=== PATIENT | male | born 1950 | race Caucasian/White ===

== ENCOUNTER 2020-01-04 09:46 | Outpatient (CLI) | payer MEDICARE, SELFPAY ==
[2020-01-04 09:58] LABS: Basophils Absolute Auto 0.05 K/mm3 (0.00-0.10); Basophils Percent Auto 0.5 % (0.0-1.0); Eosinophils Absolute Auto 0.25 K/mm3 (0.02-0.50); Eosinophils Percent Auto 2.4 % (1.0-6.0); Hematocrit 41.5 % (37.0-46.0); Immature Granulocyte Absolute 0.05 K/mm3 (0.00-0.00); Immature Granulocyte Percent A 0.5 % (0.0-0.0); Lymphocytes Absolute Auto 3.11 K/mm3 (1.10-4.50); Lymphocytes Percent Auto 30.1 % (18.0-42.0); Mean Corpuscular HGB Conc 33.7 g/dL (32.0-36.0); Mean Corpuscular Hemoglobin 31.5 pg (27.0-31.0); Mean Corpuscular Volume 93.5 fL (78.0-102.0); Mean Platelet Volume 10.4 fl (8.7-11.0); Monocytes Absolute Auto 1.04 K/mm3 (0.10-0.90); Monocytes Percent Auto 10.1 % (2.0-11.0); Neutrophils Absolute Auto 5.8 K/mm3 (1.7-7.2); Neutrophils Percent Auto 56.4 % (50.0-70.0); Platelet Count Result 201 K/mm3 (150-420); Red Blood Count 4.44 M/mm3 (4.70-6.10); Red Cell Distribution Width 12.2 % (11.6-14.4); White Blood Count 10.3 K/mm3 (4.8-10.8)
[2020-01-04 10:08] LABS: Hemoglobin A1C 5.7 % (<5.7)
[2020-01-04 11:30] LABS: Alanine Aminotransferase 13 U/L (16-63); Albumin Level 3.4 g/dL (3.4-5.0); Alkaline Phosphatase 122 U/L (46-116); Anion Gap 10.9 mmol/L (7-16); Aspartate Amino Transferase 15 U/L (15-37); Bilirubin,Total 0.2 mg/dL (0.00-1.00); Blood Urea Nitrogen 17 mg/dL (7-18); Calcium 8.6 mg/dL (8.5-10.1); Carbon Dioxide 30 mmol/L (21-32); Chloride 104 mmol/L (98-108); Cholesterol 119 mg/dL (0-200); Estimated Glomerular Filt Rate > 60; Glucose 97 mg/dL (70-99); HDL Direct 25 mg/dL (40-60); LDL Cholesterol Calculated 67 mg/dL (<130); Osmolality Calculated 291 mOsm/kg (285-295); Potassium 4.9 mmol/L (3.5-5.1); Sodium 140 mmol/L (136-145); Total Protein 6.6 g/dL (6.4-8.2); Triglycerides 136 mg/dL (0-150)
[2020-01-04 11:31] LABS: Thyroid Stimulating Hormone Reflex 2.75 u/IU/mL (0.36-3.74)
== END 2020-01-04 09:47 | disposition home or self-care (01) ==
LOC: CHSLAB 09:49
PROVIDERS: PCP Family Medicine; Visit Provider Family Medicine
DX: E78.5 Hyperlipidemia, unspecified (principal); I10 Essential (primary) hypertension; I25.10 Atherosclerotic heart disease of native coronary artery without angina pectoris; R73.02 Impaired glucose tolerance (oral)
CPT/HCPCS: 36415; 80053; 80061; 83036; 84443; 85025

== ENCOUNTER 2020-01-29 13:51 | Outpatient (CLI) | payer MEDICARE, MEDICAID, SELFPAY ==
--- NOTE | ~2020-01-29 | CT_ITS ---
EXAMINATION: CTA abd aorta runoff DATE: 01/29/2020 15:27 INDICATION: Peripheral vascular disease TECHNIQUE: Computed tomographic angiography (CTA) of the abdomen, pelvis, and both lower extremities was performed with 150 mL Omnipaque-350 intravenous contrast. The dose-length product (DLP) was 727.6 3 mGy-cm. Maximum intensity projection 3D-reconstructions of the arteries were created by the technol gerry on a separate workstation. Automated exposure control and iterative reconstruction technique we re employed. COMPARISON: None. FINDINGS: ABDOMINAL AORTA AND ITS BRANCHES: There is calcified atherosclerosis of the abdominal aorta without aneurysm or dissection. The celiac axis and superior mesenteric artery are normal in appearance. The inferior mesenteric artery is dimin utive. Single renal arteries are present bilaterally. PELVIC VASCULATURE: An endovascular stent is present in the right common iliac artery. There is calcified atherosclerosis of the left common iliac artery with mild stenosis. There is calcified atherosclerosis of the bilate ral external iliac arteries with mild stenosis. There is calcified atherosclerosis with severe stenos is in the left internal iliac artery and moderate stenosis of the right common iliac artery. RIGHT LOWER EXTREMITY VASCULATURE: There are changes of femoral popliteal bypass. There is severe stenosis of the distal femoral artery near the origin of the bypass. The superficial artery is occluded just beyond its origin. The bypass graft is patent. The popliteal artery demonstrates moderate to severe stenosis. There is severe steno sis at the origin of the peroneal artery which is diminutive throughout its course. There is atherosc lerosis with mild stenosis at the origins of the anterior and posterior tibial arteries which are oth erwise normal throughout their course. LEFT LOWER EXTREMITY VASCULATURE: There is calcified atherosclerosis and severe stenosis at the origin of the superficial femoral arter y. The superficial femoral artery is occluded over an approximately 10 cm span is proximal half with distal reconstitution approximately 20 cm above the knee. The distal superficial femoral artery demon strates calcified atherosclerosis with focal segments of severe stenosis. There is calcified atherosc lerosis of the popliteal artery without significant stenosis. The peroneal and the anterior and poste rior tibial arteries are normal in appearance and patent at the ankle. The peroneal artery is diminut samuel just above the ankle. ADDITIONAL FINDINGS: Minimal dependent atelectasis is present in the lung bases. The heart size is normal. The liver, sple en, pancreas, gallbladder, and adrenal glands are normal. There is a 1.4 cm hyperdense lesion of the left kidney upper pole. Smaller lesions of the kidneys likely represent cysts. No pathologically enla rged abdominal or pelvic lymph nodes are identified. There is no free intraperitoneal gas or evidence of bowel obstruction. There are healed fractures of the pelvis and left-sided ribs. There is an age- indeterminate T12 compression fracture. IMPRESSION: 1. Arterial vascular disease as detailed above. 2. Hyperdense lesion of the right kidney upper pole which could reflect a hemorrhagic or proteinaceou s cyst or solid neoplasm. Follow-up by CT or MRI without and with contrast is recommended. Reviewed, dictated and finalized at location B. IMPRESSION: 1. Arterial vascular disease as detailed above. 2. Hyperdense lesion of the right kidney upper pole which could reflect a hemor rhagic or proteinaceous cyst or solid neoplasm. Follow-up by CT or MRI without and with contrast is recommended.
--- NOTE | ~2020-01-29 | US_ITS ---
US arterial ankle brachial ind, US arterial duplex LE RT INDICATION: Right great toe amputation. High cholesterol. Cardiac history. Right lower extremity linda t. TECHNIQUE: Segmental pressures and plethysmographic and Doppler waveforms of the brachial and lower e xtremity arteries were obtained. COMPARISON: None. FINDINGS: Right and left brachial artery pressures of 138 mm Hg and 138 mm Hg, respectively, are concordant (no rmal difference <= 30 mmHg). The right ankle-brachial index (DONALD) is 0.43 (normal >= 0.9-1.0). The right great toe pressure could not be obtained due to amputation. The left DONALD is 0.36. The left TBI is 0.52. There is normal arterial flow through the right lower extremity graft and arteries without evidence f or occlusion. IMPRESSION: 1. Diminished bilateral ankle-brachial indices consistent with moderate-severe peripheral arterial di sease. Reviewed, dictated and finalized at location A. IMPRESSION: 1. Diminished bilateral ankle-brachial indices consistent with moderate-severe peripheral arterial disease.
== END 2020-01-29 13:52 | disposition home or self-care (01) ==
PROVIDERS: PCP Family Medicine
DX: I73.9 Peripheral vascular disease, unspecified (principal); N28.9 Disorder of kidney and ureter, unspecified
CPT/HCPCS: 75635; 93922; 93926; Q9967

== ENCOUNTER 2020-02-11 21:30 | Emergency (ER) | payer MEDICARE, MEDICAID, SELFPAY ==
--- NOTE | ~2020-02-11 | XR_ITS ---
EXAMINATION: XR chest 1V portable DATE: 02/11/2020 22:08 INDICATION: Hemoptysis. TECHNIQUE: A single frontal view of the chest was obtained on 2 radiographs. COMPARISON: Chest 2 views 02/18/2016, chest CT 02/11/2020 FINDINGS: The lungs are hyperexpanded with lucencies, consistent with emphysema. There is mild scarri ng at the lung apices. There is mild atelectasis in lingula. No pleural effusion or pneumothorax. The heart size is normal. IMPRESSION: 1. Emphysema. 2. Mild scarring at the lung apices and mild atelectasis in lingula. Reviewed, dictated and finalized at location B.
--- NOTE | ~2020-02-11 | CT_ITS ---
EXAMINATION: CTA chest PE protocol DATE: 02/11/2020 22:51 INDICATION: Hemoptysis. TECHNIQUE: Computed tomography angiography (CTA) of the chest was performed with 100 mL Omnipaque-350 intravenous contrast timed to evaluate the pulmonary arteries. Coronal maximum intensity projection 3D-reconstructions were created by the technologist. Automated exposure control and iterative reconst ruction technique were employed. The dose-length product was 948.67 mGy-cm. COMPARISON: Chest single view 02/11/2020 FINDINGS: There is mild emphysema. There is mild scarring at the lung apices. There are centrilobular nodules and groundglass opacities in posterior segment right upper lobe. Calcified right lung nodule s are consistent with old granulomatous disease. There is mild atelectasis in right middle lobe, ling james, and left lower lobe. The posterior costophrenic angles are excluded. There are a few scattered n odules in the lungs measuring up to 5 mm in the lingula, likely benign. No pleural effusion. The hear t size is normal. No pericardial effusion. There is no pulmonary embolus. There is mild thoracic spon dylosis. There is a chronic burst fracture of T12. There are old healed left rib fractures. IMPRESSION: 1. No pulmonary embolus. 2. Mild emphysema. 3. Mild pneumonia in posterior segment right upper lobe. Reviewed, dictated and finalized at location B.
--- NOTE | ~2020-02-11 | CT_ITS ---
EXAMINATION: CT soft tissue neck w con DATE: 02/11/2020 22:52 INDICATION: Hemoptysis. TECHNIQUE: Computed tomography (CT) of the neck was performed with 100 mL Omnipaque-350 intravenous c ontrast. Automated exposure control and iterative reconstruction technique were employed. The dose-le ngth product was 414 mGy-cm. COMPARISON: None FINDINGS: There is plaque in the proximal internal carotid arteries with less than 50% stenosis relat samuel to normal distal artery lumen diameters. There are no pathologically enlarged lymph nodes. There is irregular mucosal thickening of the false vocal cords, base of the epiglottis, and aryepiglottic f olds. There is moderate cervical spondylosis. IMPRESSION: 1. Irregular mucosal thickening of the false vocal cords, base of the epiglottis, and aryepiglottic f olds suspicious for primary neoplasm. Endoscopy is recommended. Reviewed, dictated and finalized at location B. IMPRESSION: 1. Irregular mucosal thickening of the false vocal cords, base of the epiglotti s, and aryepiglottic folds suspicious for primary neoplasm. Endoscopy is recomm ended.
[2020-02-11 21:31] VITALS: BP 144/63; PULSE 96; RESP 20; TEMP 36.8; O2SAT 96
--- NOTE | 2020-02-11 21:58 | ECG_ITS ---
Measurements Intervals [place] Rate: 54 P: 64 ME: 162 QRS: -50 QRSD: 104 T: 27 QT: 423 QTc: 402 Interpretive Statements SINUS BRADYCARDIA LEFT AXIS DEVIATION PEAKED T WAVES- CONSIDER ISCHEMIA OR HYPERKALEMIA BORDERLINE ST ABNORMALITY- LATERAL LEADS BASELINE ARTIFACT- I, III, AVR, AVL ABNORMAL ECG Electronically Signed On 02-12-2020 7:54:38 CDT by Meir Tripathi D.O.
--- NOTE | 2020-02-11 22:05 | ED.GENADULT ---
HPI - General Adult General Chief complaint: Unspecified Stated complaint: SPITTING UP BLOOD Time Seen by Provider: 02/11/20 21:58 History of Present Illness HPI narrative: Patient presents with his for spitting up blood. He says it is from his throat, but sometimes he has to cough to help move it out of the way. He can hardly swallow. He is hoarse. And is losing weight because he cannot swallow. He still smokes cigarettes. 50-year pack history. He recently had a right femoropopliteal bypass. He had a CAT scan before that, which showed a mass on 1 of the kidneys. He has no pain with this coughing up of blood. He smokes cigarette, he does not drink alcohol, he does not smoke marijuana. Onset (ago): week(s) Location: neck Radiation: non-radiation Severity: moderate Relieving factors: none Exacerbating factors: none Associated symptoms: cough and other (Weight loss) Related Data Home Medications Medication Instructions Recorded Confirmed omeprazole 20 mg capsule,delayed 20 mg PO DAILY 12/06/19 12/29/19 release Allergies Allergy/AdvReac Type Severity Reaction Status Date / Time niacin Allergy Intermediate Rash Verified 02/11/20 21:57 Review of Systems Review of Systems: Narrative: CONSTITUTIONAL: Denies fever, chills, or sweats. He has weight loss. EYES: Denies visual changes, redness, or discharge. ENT: Denies rhinorrhea, congestion, sore throat, or otalgia. He coughs up blood from his throat. CARDIOVASCULAR: Denies chest pain, palpitations, or edema. RESPIRATORY: Denies cough or dyspnea. GASTROINTESTINAL: Denies abdominal pain, nausea, vomiting, or diarrhea. GENITOURINARY: Denies dysuria or hematuria. SKIN: Denies rash or itching. MUSCULOSKELETAL: Denies back pain, joint pain, or myalgia. NEUROLOGIC: Denies headache, numbness, or weakness. . All systems reviewed & are unremarkable except as noted in HPI and below PMFSH Past Medical History Medical History Acute sinusitis Amputated toe Chronic GERD Cigarette smoker Coronary artery disease Femoral-femoral bypass graft thrombosis, right Heart attack Hyperlipidemia Hypertension Nicotine addiction Non-Hodgkin lymphoma Perforated bowel Toe amputee Surgical History Surgical History History of surgical removal of intestinal structure Hx of toe surgery Stented coronary artery Social History Social History Smoking packs per day: 0.5 Smoking cigarettes per day: 10.0 Years smoked: 50 Smoking pack-years: 25.00 Smoking status: Current every day smoker (5 cigarette per day) Tobacco type: cigarettes Alcohol intake: never Substance use: never Substance use type: does not use Exam Narrative: Exam Narrative: GENERAL: no acute distress. Very thin, and pale. He has a basin with some blood tinged phlegm. HEAD: Normocephalic, atraumatic. EYES: PERRLA and EOMI. ENT: Nares clear, no rhinorrhea or epistaxis. Mucous membranes moist. NECK: Supple. CHEST: Clear to auscultation. No respiratory distress. HEART: Regular rate and rhythm. No murmur heard. Normal peripheral pulses. ABDOMEN: Soft, nontender, nondistended, normal active bowel sounds. EXTREMITIES: Normal range of motion. No edema. SKIN: Warm, dry, no rash. NEURO: No focal deficits. Alert and oriented x3. PSYCH: Normal mood and affect. Course Consultations Consultation #1: Martha Russell from [facility] called and said she will look for the right bed in the name of the hospitalist who will be taking care of this patient. Transfer will be to [facility]. Under Dr. Amaya. Date: 02/12/20 Time: 00:28 Vital Signs Vital signs: Vital Signs Temperature 98.2 F 02/11/20 21:31 Pulse Rate 96 02/11/20 21:31 Respiratory Rate 02/11/20 21:31 Blood Pressure 144/63 H 02/11/20 21:31 Pulse Oximetry
[2020-02-11 22:27] LABS: Basophils Percent Auto 0.4 % (0.2-1.2); Eosinophils Absolute Auto 0.2 K/mm3 (0-0.3); Eosinophils Percent Auto 2.6 % (0-4.4); Hematocrit 40.1 % (42.0-52.0); Hemoglobin 13.4 g/dL (14.0-18.0); Immature Granulocyte Absolute 0.03 K/mm3 (0.00-0.031); Immature Granulocyte Percent A 0.3 % (0-0.5); Lymphocytes Absolute Auto 2.82 K/mm3 (0.9-3.2); Mean Corpuscular HGB Conc 33.4 g/dl (32-36); Mean Corpuscular Hemoglobin 30.9 pg (26-34); Mean Corpuscular Volume 92.6 fl (80-100); Mean Platelet Volume 10.4 fl (7.4-10.4); Monocytes Percent Auto 10.6 % (2.6-8.5); Neutrophils Absolute Auto 5.3 K/mm3 (1.3-6.7); Neutrophils Percent Auto 56.1 % (45.5-73.1); Platelet Count Result 223 k/mm3 (150-375); Red Blood Count 4.33 M/mm3 (4.6-6.20); Red Cell Distribution Width 13.1 % (11.5-14.5); White Blood Count 9.4 K/mm3 (4.5-10.0)
[2020-02-11 22:36] LABS: Prothrombin Time 12.9 Seconds (11.1-14.7)
[2020-02-11 22:39] LABS: Alanine Aminotransferase 10 U/L (4-50); Albumin Level 3.8 g/dL (3.5-5.1); Alkaline Phosphatase 105 U/L (38-126); Anion Gap 5 mmol/L (8-16); Aspartate Amino Transferase 19 U/L (17-59); Bilirubin,Total 0.3 mg/dL (0.2-1.3); Blood Urea Nitrogen 16 mg/dL (9-20); Carbon Dioxide 28 mmol/L (22-30); Chloride 104 mmol/L (98-107); Estimated CRCL calculation 61 ml/min; Estimated Glomerular Filt Rate > 60; Glucose 98 mg/dL (75-110); Potassium 4.3 mmol/L (3.4-5.0); Sodium 137 mmol/L (137-145)
[2020-02-11 22:41] LABS: Estimated CRCL calculation 61 ml/min; Estimated Glomerular Filt Rate > 60
[2020-02-11 22:51] LABS: Troponin I < 0.012 ng/mL (0.000-0.034)
[2020-02-11 23:08] VITALS: BP 120/97; PULSE 57; RESP 13; O2SAT 99
[2020-02-12 01:04] VITALS: BP 137/63; PULSE 58; RESP 20; O2SAT 98
--- NOTE | 2020-02-12 01:30 | PC.NURSE ---
Upon attempting to collect pts 3 hour trop level, pt jerked hand back saying forget that crap and refused to allow me to collect the sample. ED physician notified
[2020-02-12 02:08] VITALS: PULSE 58; RESP 18; O2SAT 97
--- NOTE | 2020-02-12 02:55 | PC.NURSE ---
[id number] this nurse calld Karen RN at [facility] on [address] at [phone] to give nurse to nurse report. Patient going to room number 0858.
[2020-02-12 03:03] VITALS: BP 123/62; PULSE 58; RESP 17; TEMP 36.6; O2SAT 97
--- NOTE | 2020-02-12 03:13 | PC.NURSE ---
This nurse contacted patient's at [phone] to inform her on patient's room number at [facility].
--- NOTE | 2020-02-12 03:26 | PC.NURSE ---
EMS here to transport patient to [facility].
== END 2020-02-12 03:27 | disposition short-term general hospital (02) ==
PROVIDERS: Emergency Provider Emergency Medicine; PCP Family Medicine
DX: C14.0 Malignant neoplasm of pharynx, unspecified (principal); F17.210 Nicotine dependence, cigarettes, uncomplicated; R47.02 Dysphasia; R63.4 Abnormal weight loss; Z68.1 Body mass index [BMI] 19.9 or less, adult; K21.9 Gastro-esophageal reflux disease without esophagitis; I25.10 Atherosclerotic heart disease of native coronary artery without angina pectoris; I25.2 Old myocardial infarction; E78.5 Hyperlipidemia, unspecified; I10 Essential (primary) hypertension; Z89.429 Acquired absence of other toe(s), unspecified side; Z95.1 Presence of aortocoronary bypass graft; Z95.5 Presence of coronary angioplasty implant and graft; Z90.49 Acquired absence of other specified parts of digestive tract; R00.1 Bradycardia, unspecified; R94.31 Abnormal electrocardiogram [ECG] [EKG]; J43.9 Emphysema, unspecified; J18.9 Pneumonia, unspecified organism
CPT/HCPCS: 36415; 70491; 71045; 71275; 80053; 84484; 85025; 85610; 86850; 86900; 86901; 93005; 99285; Q9967

== ENCOUNTER 2020-02-17 01:45 | Outpatient (CLI) | payer MEDICARE, MEDICAID, SELFPAY ==
[2020-02-17 18:01] LABS: SARS-CoV-2 RNA PCR Negative
== END 2020-02-17 01:46 | disposition home or self-care (01) ==
LOC: ANHCOVIDDT 01:45
PROVIDERS: PCP Family Medicine; Visit Provider Otolaryngology
DX: Z01.812 Encounter for preprocedural laboratory examination (principal); Z20.828 Contact with and (suspected) exposure to other viral communicable diseases
CPT/HCPCS: 87635; C9803; U0003

== ENCOUNTER 2020-09-26 11:13 | Outpatient (CLI) | payer MEDICARE, MEDICAID, SELFPAY ==
--- NOTE | ~2020-09-26 | MR_ITS ---
EXAMINATION: MR foot RT wo/w con DATE: 09/26/2020 12:44 INDICATION: Osteomyelitis with right foot pain and open wounds at the second and fourth digits. TECHNIQUE: Magnetic resonance imaging (MRI) of the right fore/mid foot was performed without and with 13 mL Multihance intravenous contrast. Sequences included axial, sagittal and coronal T1-weighted FS E and T2-weighted FS FSE, axial T1-weighted FS FSE and postcontrast axial, sagittal and coronal T1-we ighted FS FSE. COMPARISON: None FINDINGS: Severe motion artifact on the axial and coronal sequences. Mild to moderate motion artifact on the sa gittal sequences. This renders assessment of fine anatomic detail such of the joint spaces, stabilizi ng ligaments and tendons essentially nondiagnostic. The sagittal T1-weighted images however however o f sufficient quality to exclude bone lesions with geographic loss of T1 fat signal as would be expect ed for osteomyelitis. There have been prior amputations of the first and third toes with osteotomies across the midportion of the first and third proximal phalanges. There is prominent subcutaneous fernandez a over the dorsum of the foot. No joint effusions or abscesses identified. IMPRESSION: 1. Markedly limited study due to large amount of motion artifact on all but the sagittal T1-weighted images which demonstrate no regions with loss of T1 marrow fat signal to suggest osteomyelitis. No ab scesses identified. Given the limitations of the current MR imaging would consider plain radiographs of the region of concern which would provide additional confidence. Reviewed, dictated and finalized at location A. IMPRESSION: 1. Markedly limited study due to large amount of motion artifact on all but the sagittal T1-weighted images which demonstrate no regions with loss of T1 marro w fat signal to suggest osteomyelitis. No abscesses identified. Given the limit ations of the current MR imaging would consider plain radiographs of the region of concern which would provide additional confidence.
[2020-09-26 11:48] LABS: Estimated Glomerular Filt Rate 60
== END 2020-09-26 11:14 | disposition home or self-care (01) ==
LOC: ANHIMG 11:19
PROVIDERS: PCP Family Medicine; Visit Provider Family Medicine
DX: M86.071 Acute hematogenous osteomyelitis, right ankle and foot (principal)
CPT/HCPCS: 73720; A9577

== ENCOUNTER 2020-09-27 10:32 | Outpatient (CLI) | payer MEDICARE, MEDICAID, SELFPAY ==
--- NOTE | ~2020-09-27 | XR_ITS ---
XR foot RT 2V 09/27/2020 10:50 Indication: Right foot pain. Recent amputation. Procedure: 2 views right foot Comparison: No prior studies for comparison. Findings: There is amputation of the first and third digits at the proximal phalanges. No fracture or traumatic malalignment. No evidence for osteomyelitis. No significant soft tissue abnormality. Lisfr anc joint is intact. Impression: 1: No acute bone or joint abnormality. Reviewed, dictated and finalized at location B. Impression: 1: No acute bone or joint abnormality.
== END 2020-09-27 10:33 | disposition home or self-care (01) ==
LOC: CHSIMG 10:35
PROVIDERS: PCP Family Medicine; Visit Provider Family Medicine
DX: M79.671 Pain in right foot (principal)
CPT/HCPCS: 73620

== ENCOUNTER → 2020-11-18 01:10 | Outpatient (CLI) | payer MEDICARE, MEDICAID, SELFPAY ==
[2020-11-18 18:48] LABS: SARS-CoV-2 RNA PCR Negative
== END ==
PROVIDERS: PCP Family Medicine; Visit Provider Internal Medicine Cardiovascular Disease
DX: Z01.812 Encounter for preprocedural laboratory examination (principal); Z20.822 Contact with and (suspected) exposure to COVID-19
CPT/HCPCS: C9803; U0003; U0005

== ENCOUNTER 2020-11-21 01:25 | Day surgery (SDC) | payer MEDICARE, MEDICAID, SELFPAY ==
[2020-11-21] VITALS (13 sets, daily range): BP systolic 122–138; BP diastolic 48–61; PULSE 50–59; RESP 14–16; TEMP 35.8–36.2; O2SAT 100; BMI 18.6
[2020-11-21 10:44] LABS: Basophils Absolute Auto 0.1 K/mm3 (0.0-0.1); Basophils Percent Auto 0.9 % (0.2-1.2); Eosinophils Absolute Auto 0.3 K/mm3 (0-0.3); Eosinophils Percent Auto 4.7 % (0-4.4); Hematocrit 33.7 % (42.0-52.0); Immature Granulocyte Absolute 0.02 K/mm3 (0.00-0.031); Immature Granulocyte Percent A 0.3 % (0-0.5); Lymphocytes Percent Auto 26.9 % (18.3-44.2); Mean Corpuscular HGB Conc 32.6 g/dl (32-36); Mean Corpuscular Hemoglobin 32.2 pg (26-34); Mean Corpuscular Volume 98.5 fl (80-100); Mean Platelet Volume 10.3 fl (7.4-10.4); Monocytes Absolute Auto 0.7 K/mm3 (0.1-0.6); Monocytes Percent Auto 10.4 % (2.6-8.5); Neutrophils Absolute Auto 3.6 K/mm3 (1.3-6.7); Neutrophils Percent Auto 56.8 % (45.5-73.1); Platelet Count Result 176 k/mm3 (150-375); Red Blood Count 3.42 M/mm3 (4.6-6.20); Red Cell Distribution Width 13.4 % (11.5-14.5); White Blood Count 6.3 K/mm3 (4.5-10.0)
[2020-11-21] MEDS: SODIUM CHLORIDE 0.9% IV 500 ML 100 ML IV CONT (10:45)
[2020-11-21 10:54] LABS: Prothrombin Time 13.6 Seconds (11.1-14.7)
[2020-11-21 10:55] LABS: Anion Gap 5 mmol/L (8-16); Blood Urea Nitrogen 17 mg/dL (9-20); Calcium 8.9 mg/dL (8.4-10.2); Carbon Dioxide 25 mmol/L (22-30); Chloride 108 mmol/L (98-107); Estimated CRCL calculation 45 ml/min; Estimated Glomerular Filt Rate 55; Glucose 86 mg/dL (75-110); Potassium 4.8 mmol/L (3.4-5.0); Sodium 138 mmol/L (137-145)
--- NOTE | 2020-11-21 11:00 | WPDMODSED ---
Moderate Sedation Note-Pt Data Patient Data Allergies Allergy/AdvReac Type Severity Reaction Status Date / Time niacin Allergy Intermediate Rash Verified 09/20/20 14:40 Home Medications Medication Instructions Recorded Confirmed Type omeprazole 20 mg capsule,delayed 20 mg PO DAILY #90 cap 07/19/20 11/21/20 Rx release atenolol 50 mg tablet 50 mg PO DAILY #90 tablet 09/30/20 11/21/20 Rx atorvastatin 20 mg tablet 20 mg PO DAILY #90 tablet 09/30/20 11/21/20 Rx gabapentin 600 mg tablet 600 mg PO TID #90 tablet 10/16/20 11/21/20 Rx clopidogrel 75 mg tablet 75 mg PO DAILY #90 tablet 11/06/20 11/21/20 Rx aspirin 81 mg PO DAILY 11/21/20 11/21/20 History Current Medications: Active Medications Sodium Chloride (Normal Saline Iv) 500 mls @ 100 mls/hr IV CONT .Q5H BETTINA Sedation/Anesthesia: No previous sedation/anesthesia problems (including family history). [facility] Past Medical History Medical History Acute sinusitis Amputated toe Chronic GERD Cigarette smoker Coronary artery disease Femoral-femoral bypass graft thrombosis, right Heart attack Hyperlipidemia Hypertension Nicotine addiction Non-Hodgkin lymphoma Perforated bowel Peripheral arterial disease Peripheral vascular disease Right foot pain Swelling of both lower extremities Throat cancer Toe amputee Surgical History Surgical History History of surgical removal of intestinal structure Hx of toe surgery Stented coronary artery Social History Social History Smoking packs per day: 0.5 Smoking cigarettes per day: 10.0 Years smoked: 50 Smoking pack-years: 25.00 Smoking status: Current every day smoker Tobacco type: cigarettes Additional smoking assessment comments: WAS 2PK/DAY NOW 1PK EVERY 3 DAYS Alcohol intake: never Substance use: never Substance use type: does not use Spiritual care concerns: No Mod Sed Physical Exam Physical Exam Pre Procedural Exam: Normal: Appearance, Eyes, Ears, Nose, Neck, Throat, Airway, Lungs, Heart Size, Heart Rate, Heart Rhythm, Neuro Exam, Abdomen, Liver, Kidneys, Spleen, Breasts, Genitalia, Extremities and Skin Hours since solid foods: 8 Hours since liquid intake: 8 Internal Medicine - PN: Obj Da Vital Signs Vital Signs: Vital Signs - 24 hr 11/21/20 10:49 Temperature 36.2 C L Pulse Rate 51 L Respiratory Rate 16 Blood Pressure 124/56 L Pulse Oximetry 100 Meds/Results Medications: Active Medications Generic Name Dose Route Start Last Admin Trade Name Freq PRN Reason Stop Dose Admin Sodium Chloride 500 mls @ 100 mls/hr 11/21/20 07:20 Normal Saline Iv IV CONT .Q5H BETTINA Labs CBC & Chem 7: 11/21/20 10:37 11/21/20 10:37 Labs: Laboratory Results - last 24 hr 11/21/20 11/21/20 11/21/20 10:37 10:37 10:37 WBC 6.3 RBC 3.42 L Hgb 11.0 L Hct 33.7 L MCV 98.5 MCH 32.2 MCHC 32.6 RDW 13.4 Plt Count 176 MPV 10.3 Immature Gran % (Auto) 0.3 Neut % (Auto) 56.8 Lymph % (Auto) 26.9 [place] % (Auto) 10.4 H Eos % (Auto) 4.7 H Baso % (Auto) 0.9 Lymph # (Auto) 1.70 [place] # (Auto) 0.7 H Eos # (Auto) 0.3 Baso # (Auto) 0.1 Abs Immat Gran (auto) 0.02 Absolute Neuts (auto) 3.6 Absolute Nucleated RBC 0.0 Nucleated RBC % 0.0 PT 13.6 INR 1.0 Sodium 138 Potassium 4.8 Chloride 108 H Carbon Dioxide 25 Anion Gap 5 L BUN 17 Creatinine 1.30 Estim Creat Clear Calc 45 Estimated GFR 55 L Glucose 86 Calcium 8.9 ASA Classification/Sedation ASA Classification/Sedation ASA Class: I Emergent: No Risks: Risks, benefits and alternatives explained and patient/family accepted plan for sedation. Patient re-evaluated immediately prior to sedation.
--- NOTE | 2020-11-21 11:00 | WPDHPUPDATE1 ---
History and Physical Update Update Date/Time: 11/21/20 11 am History and Physical has been reviewed, including an updated exam of the patient. There are NO changes in the patient's condition. Risks, benefits, and alternatives have been discussed and questions answered. Patient agrees to proceed with procedure.
--- NOTE | 2020-11-21 12:21 | WPDCARDPROC ---
Cardiac Cath Procedure Note Date of procedure:: 11/21/20 Performing physician:: Claire Walden MD Date of service 11/21/2020- Procedure Procedure performed:: 1-Moderate sedation that started at 11:28 a.m.and ended at 12:13 p.m. with total duration 45 minutes using 2mg of Versed and 50mcg fentanyl. The registered nurse was phyllis quevedo 2-Selective left and right coronary angiogram. 3-Left heart catheterization with measurement of LVEDP and measurement of gradient across aortic valve. 4- LV angiogram. 5- Stent of mid LAD using 2.25 x 18 resolute vonnie drug-eluting stent. Sedation/Medication given:: Moderate sedation. Access site:: Right Radial artery. Estimated blood loss:: 10cc Procedure note:: After informed consent patient was brought in to center medical and lab director with the was draped and prepped in usual manner. Moderate sedation was given and the right wrist was infiltrated using 1% lidocaine. six Danish sheath was obtained using classic Seldinger technique. Selective left coronary angiogram was done using JL3.5 catheter with the tip of the catheter placed in the left main coronary artery. Selective right coronary angiogram was done using JR4 catheter with the tip of the catheter placed to the right coronary artery. After that the JR4 catheter was advanced across the aortic valve into the left ventricle with measurement of LVEDP and measurement of gradient across aortic valve. LV angiogram was done with as well. After that a guide catheter 6 Danish CLS 3.5 was advanced and engaged in the left main. Coronary luge wire 0.014 was advanced to distal LAD. Balloon angioplasty was done using 2.25 x 12 with 1 inflation under nominal pressure for 20 seconds. Then deployed drug-eluting stent 2.25 x 18 resolute vonnie deployment done of the normal pressure for 25 seconds. Final result shows excellent deployment. Hemostasis was achieved using TR band. Findings:: 1- left coronary artery is a large artery that divides into large LAD, large circumflex artery. also large ramus intermedius. Left main is Free of disease. 2- left anterior descending artery is a large artery that Tapers small artery that runs to the apex. Minimal irregularities proximally and then after the diagonal 2 branch is about 80% to 90% stenosis. Caliber of the vessel is not Large in this area. there is a medium size diagonal branch that has ostial 30% and medium size diagonal 2 branch that looks unremarkable. 3- leftcircumflex artery is a large artery And dominant and has diffuse minimal irregularities. There is a large OM branch distally that has minimal irregularities and a large left PDA that has 2 sequential lesions each 1 about 40-50%. 4- Ramus intermedius is occluded. has a stent covering the ostium and the proximal portion and it is occluded at the ostium. 4- right coronary artery is small artery and non dominant and is totally occluded proximally. 5- LVEDP was 4 mm Hg and no gradient across aortic valve. 6- LV angiogram shows normal LV systolic function with estimated ejection fraction 65%. There is a hint that there could be LVH. 6- opening arterial pressure was 130/80 and closing pressure was 110/70. Conclusion:: successful stenting of LAD using 2.25 x 18 drug-eluting stent. Two sequential lesions of 50% in left PDA will be observed. Assessment and Plan Additional Plan 1- continue aspirin and Plavix. 2- Patient may undergo the vascular surgery procedure while he is taking aspirin or Plavix. If aspirin and Plavix has to be interrupted then patient has to wait 6 months before considering surgery.
[2020-11-21] MEDS: SODIUM CHLORIDE 0.9% IV 600 ML 100 ML IV CONT (13:31)
--- NOTE | 2020-11-21 15:16 | ECG_ITS ---
Measurements Intervals [place] Rate: 45 P: 54 NH: 142 QRS: -49 QRSD: 105 T: 45 QT: 443 QTc: 387 Interpretive Statements SINUS BRADYCARDIA LEFT ANTERIOR FASCICULAR BLOCK BASELINE ARTIFACT- V2 ABNORMAL ECG Electronically Signed On 11-21-2020 15:53:10 CDT by Meir Tripathi D.O.
--- NOTE | 2020-11-21 18:31 | PC.NURSE ---
This patient, Luis Fuentes, was received from [ [facility] ] on 11/21/20 at 1800. Patient/family oriented to unit policies and routines
--- NOTE | 2020-11-21 19:22 | PC.NURSE ---
Patient stated to COPYING MACHINE REPAIRER that he was leaving AMA. COPYING MACHINE REPAIRER let this nurse know. This nurse talked with the patient and asked the reasons for wanting to leave AMA. Risks and benefits were explained to the patient. Dr. Walden notified @0542. Dr. Walden stated to tell the patient to make sure he takes his aspirin and plavix. Patient alert and oriented and signed the AMA form. IV removed and radio recorder removed.
== END 2020-11-21 19:02 | disposition left against medical advice (07) ==
LOC: ANHCATHLAB 10:23 → ANHCPC 16:10 → ANHIMU 18:19
PROVIDERS: PCP Family Medicine; Visit Provider Internal Medicine Cardiovascular Disease
PROC: 4A023N7 Measurement of Cardiac Sampling and Pressure, Left Heart, Percutaneous Approach (ICD-10-PCS; CPT 93452; principal; 2020-11-21 10:30)
DX: I25.10 Atherosclerotic heart disease of native coronary artery without angina pectoris (principal); I10 Essential (primary) hypertension; E78.5 Hyperlipidemia, unspecified; I73.9 Peripheral vascular disease, unspecified; K21.9 Gastro-esophageal reflux disease without esophagitis; I25.2 Old myocardial infarction; G47.30 Sleep apnea, unspecified; Z85.72 Personal history of non-Hodgkin lymphomas; F17.210 Nicotine dependence, cigarettes, uncomplicated; Z79.02 Long term (current) use of antithrombotics/antiplatelets; Z79.82 Long term (current) use of aspirin; Z95.820 Peripheral vascular angioplasty status with implants and grafts
CPT/HCPCS: 36415; 80048; 85025; 85610; 93005; 93458; C1725; C1769; C1874; C1887; C1894; C9600; C9803; J0583; J1644; J2250; J3010; J7030; J7040; U0003; U0005

== ENCOUNTER 2020-12-27 11:24 | Outpatient (CLI) | payer MEDICARE, SELFPAY ==
[2020-12-27 12:24] LABS: Anion Gap 9 mmol/L (8-16); Blood Urea Nitrogen 21 mg/dL (7-18); Calcium 8.8 mg/dL (8.5-10.1); Carbon Dioxide 27 mmol/L (21-32); Chloride 102 mmol/L (98-108); Estimated Glomerular Filt Rate 56; Glucose 100 mg/dL (70-99); Osmolality Calculated 289 mOsm/kg (285-295); Potassium 5.1 mmol/L (3.5-5.1); Sodium 138 mmol/L (136-145)
== END 2020-12-27 11:25 | disposition home or self-care (01) ==
LOC: CHSLAB 11:30
PROVIDERS: PCP Family Medicine; Visit Provider Family Medicine
DX: E87.1 Hypo-osmolality and hyponatremia (principal)
CPT/HCPCS: 36415; 80048

== ENCOUNTER 2021-06-25 09:08 | Outpatient (CLI) | payer MEDICARE, MEDICAID, SELFPAY ==
[2021-06-25 11:34] LABS: SARS-CoV-2 RNA PCR Negative (Negative)
== END 2021-06-25 09:09 | disposition home or self-care (01) ==
LOC: CHSLAB 09:12
PROVIDERS: PCP Family Medicine; Visit Provider Family Medicine
DX: Z20.822 Contact with and (suspected) exposure to COVID-19 (principal)
CPT/HCPCS: C9803; U0003; U0005

== ENCOUNTER 2021-09-17 12:14 | Outpatient (CLI) | payer MEDICARE, MEDICAID, SELFPAY ==
--- NOTE | 2021-09-17 12:18 | ECG_ITS ---
Measurements Intervals [place] Rate: 50 P: 44 GA: 168 QRS: -51 QRSD: 109 T: 58 QT: 437 QTc: 400 Interpretive Statements SINUS BRADYCARDIA LEFT ANTERIOR FASCICULAR BLOCK [QRS AXIS <= -45, QR IN I, RS IN II] NEW LINE NONSPECIFIC ST CHANGES COMPARED TO ECG 11/21/2020 15:21:08 NO SIGNIFICANT CHANGES Electronically Signed On 09-17-2021 13:16:46 CDT by Shira Springer M.D.
--- NOTE | 2021-09-17 12:30 | PCDIET ---
Pt to OP infusion center. Port accessed and flushed, 2 vials blood drawn for lab, port flushed again with NS and heparin per protocol. Port deaccessed and band aid applied. Pt tolerated well. Pt taken to Cardiopulmonary for EKG, amb.
[2021-09-17 12:41] LABS: Hemoglobin 11.7 g/dL (12.4-15.3); Mean Corpuscular HGB Conc 34.4 g/dL (32.0-36.0); Mean Corpuscular Hemoglobin 32.3 pg (27.0-31.0); Mean Corpuscular Volume 93.9 fL (78.0-102.0); Mean Platelet Volume 10.8 fl (8.7-11.0); Platelet Count Result 149 K/mm3 (150-420); Red Blood Count 3.62 M/mm3 (4.70-6.10); White Blood Count 6.6 K/mm3 (4.8-10.8)
[2021-09-17 13:00] LABS: Alanine Aminotransferase 16 U/L (16-63); Alkaline Phosphatase 93 U/L (46-116); Anion Gap 10 mmol/L (8-16); Aspartate Amino Transferase 13 U/L (15-37); Bilirubin,Total 0.4 mg/dL (0.00-1.00); Blood Urea Nitrogen 21 mg/dL (7-18); Calcium 8.7 mg/dL (8.5-10.1); Carbon Dioxide 25 mmol/L (21-32); Chloride 103 mmol/L (98-108); Estimated Glomerular Filt Rate 54; Glucose 87 mg/dL (70-99); Osmolality Calculated 288 mOsm/kg (285-295); Potassium 4.3 mmol/L (3.5-5.1); Sodium 138 mmol/L (136-145); Total Protein 6.8 g/dL (6.4-8.2)
== END 2021-09-17 12:15 | disposition home or self-care (01) ==
LOC: CHSLAB 12:18
PROVIDERS: PCP Family Medicine; Visit Provider Family Medicine
DX: I10 Essential (primary) hypertension (principal)
CPT/HCPCS: 36415; 80053; 85027; 93005

== ENCOUNTER 2023-01-28 09:40 | Outpatient (CLI) | payer MEDICARE, MEDICAID, SELFPAY ==
[2023-01-28 10:01] LABS: Basophils Absolute Auto 0.04 K/mm3 (0.00-0.10); Basophils Percent Auto 0.5 % (0.0-1.0); Eosinophils Absolute Auto 0.43 K/mm3 (0.02-0.50); Eosinophils Percent Auto 5.5 % (1.0-6.0); Hematocrit 31.6 % (37.0-46.0); Hemoglobin 10.6 g/dL (12.4-15.3); Immature Granulocyte Absolute 0.03 K/mm3 (0.00-0.00); Immature Granulocyte Percent A 0.4 % (0.0-0.0); Lymphocytes Absolute Auto 1.74 K/mm3 (1.10-4.50); Lymphocytes Percent Auto 22.3 % (18.0-42.0); Mean Corpuscular HGB Conc 33.5 g/dL (32.0-36.0); Mean Corpuscular Hemoglobin 32.1 pg (27.0-31.0); Mean Corpuscular Volume 95.8 fL (78.0-102.0); Mean Platelet Volume 9.8 fl (8.7-11.0); Monocytes Absolute Auto 0.87 K/mm3 (0.10-0.90); Monocytes Percent Auto 11.2 % (2.0-11.0); Neutrophils Absolute Auto 4.7 K/mm3 (1.7-7.2); Neutrophils Percent Auto 60.1 % (50.0-70.0); Platelet Count Result 254 K/mm3 (150-420); Red Cell Distribution Width 13.5 % (11.6-14.4); White Blood Count 7.8 K/mm3 (4.8-10.8)
[2023-01-28 10:20] LABS: Alanine Aminotransferase 15 U/L (16-63); Albumin Level 3.4 g/dL (3.4-5.0); Alkaline Phosphatase 115 U/L (46-116); Anion Gap 8 mmol/L (8-16); Aspartate Amino Transferase 13 U/L (15-37); Bilirubin,Total 0.4 mg/dL (0.00-1.00); Blood Urea Nitrogen 16 mg/dL (7-18); Calcium 8.8 mg/dL (8.5-10.1); Carbon Dioxide 25 mmol/L (21-32); Chloride 105 mmol/L (98-108); Cholesterol 152 mg/dL (0-200); Estimated Glomerular Filt Rate 45; Glucose 84 mg/dL (70-99); HDL Direct 31 mg/dL (40-60); LDL Cholesterol Calculated 91 mg/dL (<130); Osmolality Calculated 286 mOsm/kg (285-295); Potassium 4.8 mmol/L (3.5-5.1); Sodium 138 mmol/L (136-145); Total Protein 6.3 g/dL (6.4-8.2); Triglycerides 149 mg/dL (0-150)
== END 2023-01-28 09:41 | disposition home or self-care (01) ==
LOC: CHSLAB 09:41
PROVIDERS: PCP Family Medicine; Visit Provider Family Medicine
DX: I10 Essential (primary) hypertension (principal)
CPT/HCPCS: 36415; 80053; 80061; 85025

== ENCOUNTER 2023-05-07 11:56 | Outpatient (CLI) | payer MEDICARE, MEDICAID, SELFPAY ==
--- NOTE | ~2023-05-07 | XR_ITS ---
XR chest 2V DATE: 05/07/2023 12:28 INDICATION: Cough for 3 weeks. Smoker. TECHNIQUE: PA and lateral views COMPARISON: 02/11/2020 CTA chest 02/07/2020 portable AP chest FINDINGS: The lungs are hyperinflated suggesting COPD. No pulmonary infiltrate or consolidation, pleu ral effusion or pulmonary vascular congestion or pneumothorax is detected. Chronic moderate loss of height and anterior wedging of T12 due to old compression fracture. Osteopen ia. Coronary stents and/or atherosclerosis. Normal heart size. Aortic calcification. No hilar or mediasti nal enlargement. IMPRESSION: COPD Coronary atherosclerosis and/or stents Aortic atherosclerosis No active pulmonary disease Reviewed, dictated and finalized at location B.
[2023-05-07 12:09] LABS: Basophils Absolute Auto 0.08 K/mm3 (0.00-0.10); Basophils Percent Auto 0.6 % (0.0-1.0); Eosinophils Absolute Auto 0.27 K/mm3 (0.02-0.50); Eosinophils Percent Auto 2.1 % (1.0-6.0); Hematocrit 29.4 % (37.0-46.0); Hemoglobin 9.1 g/dL (12.4-15.3); Immature Granulocyte Absolute 0.06 K/mm3 (0.00-0.00); Immature Granulocyte Percent A 0.5 % (0.0-0.0); Lymphocytes Absolute Auto 2.39 K/mm3 (1.10-4.50); Lymphocytes Percent Auto 18.1 % (18.0-42.0); Mean Corpuscular Hemoglobin 25.4 pg (27.0-31.0); Mean Corpuscular Volume 82.1 fL (78.0-102.0); Mean Platelet Volume 10.3 fl (8.7-11.0); Monocytes Absolute Auto 1.51 K/mm3 (0.10-0.90); Monocytes Percent Auto 11.5 % (2.0-11.0); Neutrophils Absolute Auto 8.9 K/mm3 (1.7-7.2); Neutrophils Percent Auto 67.2 % (50.0-70.0); Platelet Count Result 385 K/mm3 (150-420); Red Blood Count 3.58 M/mm3 (4.70-6.10); Red Cell Distribution Width 15.2 % (11.6-14.4); White Blood Count 13.2 K/mm3 (4.8-10.8)
--- NOTE | 2023-05-07 12:09 | ECG_ITS ---
Measurements Intervals [place] Rate: 86 P: 66 MN: 191 QRS: -43 QRSD: 113 T: 82 QT: 373 QTc: 447 Interpretive Statements SINUS RHYTHM LEFT AXIS DEVIATION INCOMPLETE RIGHT BUNDLE BRANCH BLOCK DELAYED PRECORDIAL R/S TRANSITION LEFT VENTRICULAR HYPERTROPHY AND ST-T CHANGE INFERIOR INFARCT, AGE INDETERMINATE BORDERLINE ST-T WAVE ABNORMALITY- LAT/HIGH LAT LEADS ABNORMAL ECG COMPARED TO ECG 09/17/2021 12:44:08 SINUS RHYTHM NOW PRESENT INCOMPLETE RIGHT BUNDLE-BRANCH BLOCK NOW PRESENT LEFT VENTRICULAR HYPERTROPHY NOW PRESENT Electronically Signed On 05-07-2023 12:35:52 CDT by Meir Tripathi D.O.
[2023-05-07 12:27] LABS: Alanine Aminotransferase 12 U/L (16-63); Albumin Level 3.2 g/dL (3.4-5.0); Alkaline Phosphatase 170 U/L (46-116); Anion Gap 13 mmol/L (8-16); Aspartate Amino Transferase 10 U/L (15-37); Bilirubin,Total 0.4 mg/dL (0.00-1.00); Blood Urea Nitrogen 22 mg/dL (7-18); Calcium 9.4 mg/dL (8.5-10.1); Carbon Dioxide 23 mmol/L (21-32); Chloride 102 mmol/L (98-108); Estimated Glomerular Filt Rate 44; Glucose 102 mg/dL (70-99); Osmolality Calculated 289 mOsm/kg (285-295); Potassium 3.8 mmol/L (3.5-5.1); Sodium 138 mmol/L (136-145); Total Protein 7.3 g/dL (6.4-8.2); Troponin I 12.7 ng/L (0.00-60.4)
== END 2023-05-07 11:57 | disposition home or self-care (01) ==
LOC: CHSLAB 11:58
PROVIDERS: PCP Nurse Practitioner Family; Visit Provider Nurse Practitioner Family
DX: R05.8 Other specified cough (principal); R06.02 Shortness of breath; R53.1 Weakness; I50.9 Heart failure, unspecified; R07.9 Chest pain, unspecified; J44.9 Chronic obstructive pulmonary disease, unspecified; I70.0 Atherosclerosis of aorta; I45.19 Other right bundle-branch block; R94.31 Abnormal electrocardiogram [ECG] [EKG]
CPT/HCPCS: 36415; 71046; 80053; 84484; 85025; 93005